=== PATIENT | female | born 1950 | race Caucasian/White ===

== ENCOUNTER → 2016-06-26 | Day surgery (SDC) | payer MEDICARE ==
[~2016-06-26] MED LIST: ACETAMINOPHEN 1000 MG/100 ML VIAL IV ONE; AMLO10 PO; BUPIVACAINE/EPINEPHRINE 0.5% 50 ML VIAL ONE; BUPR-175 PO; HYDRO10 PO; LACTATED RINGER'S 1000 ML INJ 1,000 ML ONE; LIDOCAINE 1%/EPINEPHrine 1:100,000 SOLN 20 ML VIAL ONE; LISI-360 PO; LORTA5 PO; MIDAZOLAM HCL 2 MG/2 ML VIAL ONE; ONDANSETRON HCL 4 MG/2 ML VIAL IV PUSH ONE; PRED5TAB PO; PROPOFOL 500 MG/50 ML BTL IV ONE; ceFAZolin 2 GM PREMIX 50 ML ONE; oxyCODONE/ACETAMINOPHEN 5 MG/325 MG TAB ONE
[2016-06-26 10:04] LABS: AUTOMATED NEUTROPHIL # 3.2 TH/MM3 (1.8-7.7); BASOPHIL % 0.8 % (0.0-2.0); EOSINOPHIL # 0.2 TH/MM3 (0-0.4); HEMATOCRIT 42.3 % (35.0-46.0); LYMPH % 32.7 % (9.0-44.0); LYMPHOCYTE # 1.9 TH/MM3 (1.0-4.8); MEAN CELL VOLUME 81.4 FL (80.0-100.0); MEAN CORPUSCULAR HEMOGLOBIN 27.1 PG (27.0-34.0); MEAN CORPUSCULAR HGB CONC 33.3 % (32.0-36.0); MONO % 7.1 % (0.0-8.0); NEUT % 56.4 % (16.0-70.0); PLATELET COUNT 66 TH/MM3 (150-450); RED CELL DISTRIBUTION WIDTH 14.7 % (11.6-17.2); WHITE BLOOD COUNT 5.7 TH/MM3 (4.0-11.0)
[2016-06-26 10:06] LABS: HEMO FLAGS AUTO DIFF
[2016-06-26 10:39] LABS: PLATELET ESTIMATE SMEAR LOW (NORMAL); PLATELET MORPHOLOGY NORMAL (NORMAL); SCAN/DIFF AUTO DIFF CONFIRMED
--- NOTE | 2016-06-26 13:12 | MP ---
cc: TANIYA MATT DATE OF SURGERY 06/26/2016 PREOPERATIVE DIAGNOSIS Ductal carcinoma in situ right breast. POSTOPERATIVE DIAGNOSIS Ductal carcinoma in situ right breast. PROCEDURE Needle-localized wide excision ductal carcinoma in situ right breast. SURGEON MD Fermín ANESTHESIA Local with TIVA. OPERATIVE FINDINGS AND PROCEDURE The patient was brought to the operating room and, after satisfactory sedation by Anesthesia, the right breast was prepped and draped in the usual sterile fashion. The patient previous had undergone needle localization of a previously biopsied area showing ductal carcinoma in situ. The skin was anesthetized with 0.5% Marcaine with epinephrine. A skin incision was made in Seth's lines, carried down sharply through the subcutaneous tissue with the cautery being used for hemostasis. The incision was deepened into the breast parenchyma where the guidewire was grasped with a hemostat, then amputated at the level of the skin and brought within the wound. A core of tissue was dissected free from around the guidewire, down to the pectoralis muscle to include as much of the specimen as possible. The specimen was sent for mammography which revealed the presence of the clip and microcalcifications. The area was made hemostatic as completely as possible with the cautery. The subcutaneous tissue and skin were closed with interrupted 4-0 PDS subcuticular stitches. Steri-Strips and sterile dressing were applied and the patient was then awakened and taken from the operating room, in satisfactory condition, having tolerated the procedure without problem. Estimated blood loss was less than 5 mL. The instrument, sponge and needle counts were reported as being correct x 2 at the end of the procedure. MD RAMAN Lofton/JAILENE /12:29 PM /12:59 PM
== END | disposition home or self-care (01) ==
LOC: ESDC 08:22
PROVIDERS: ATTEND Surgery
DX: D05.11 Intraductal carcinoma in situ of right breast (principal)
CPT/HCPCS: 00400; 19125; 36415; 85025; 88307; J0131; J0690; J2250; J2405; J3010; J7120